=== PATIENT | male | born 1980 | race African-American/Black ===

== ENCOUNTER 2016-06-01 16:12 | Emergency (ER) | payer OTHER ==
[~2016-06-01] VITALS: Ht 172.7 cm; Wt 81.0 kg
[2016-06-01] MEDS ORDERED: NORCO 5/3251 TABLET PO (19:56)
[2016-06-01] MEDS ORDERED: KEFLEX500 MG PO (19:56)
[2016-06-01 20:28] VITALS: BP 139/83
== END 2016-06-01 20:29 | disposition home or self-care (01) ==
LOC: EME 16:12 → EXP 16:12
DX: Z48.01 Encounter for change or removal of surgical wound dressing (principal); S41.102D Unspecified open wound of left upper arm, subsequent encounter
CPT/HCPCS: 99281; 99284